=== PATIENT | female | born 1975 | race Caucasian/White ===

== ENCOUNTER 2025-02-18 05:35 | Emergency (ER) | payer OTHER, SELFPAY ==
[2025-02-18 05:35] VITALS: BP 147/85; PULSE 100; RESP 18; TEMP 36.4; O2SAT 99; BMI 28.9
--- NOTE | 2025-02-18 06:30 | EX.ED.DYSGE1 ---
HPI History of Present Illness Chief Complaint: Other, Pain/Inj Informant: patient and spouse/S.O. Narrative Narrative: Patient is a 49-year-old female with history of hypothyroidism. She states that yesterday evening she went to take off her rings before bath and noticed she could not get her wedding ring off her ring finger. She states that she tried soaking the hand in ice to shrink the tissue but could not get the ring off and her even tried the home trick of using dental floss to compress the tissue inside the ring off but was unsuccessful. She states that she tried to sleep with her hand elevated above her head but awoke with throbbing and pain. As she cannot get the ring off and she is concerned this will lead to constriction and lack of blood flow to the finger she presents for evaluation [facility] Medical History (Updated 02/18/25 @ 08:[address] Sim Mendez, ) History of deviated nasal septum Hypothyroidism Pulmonic stenosis Home Medications ?Medication ?Instructions ?Recorded ?Last Taken ?Type fluticasone propionate 50 2 spray PRN PRN Allergies 11/25/14 Unknown History mcg/actuation nasal spray,suspension levothyroxine 125 mcg tablet 125 mcg PO DAILY 11/25/14 Unknown History loratadine 10 mg tablet (Allergy 10 mg PO DAILY PRN Allergies 11/25/14 Unknown History Relief (loratadine)) nitrofurantoin macrocrystal 100 mg 100 mg PO BID UTI ##14 09/12/16 Unknown Rx capsule (Macrodantin) Allergy/AdvReac Type Severity Reaction Status Date / Time Quinolones AdvReac NEEDS Verified 02/18/25 05:35 FOLLOW-UP Family History no significant family his Surgical History (Updated 02/18/25 @ 05:37 by Lakhwinder Rodriguez) Hx of section History of open heart surgery Social History Smoking Status: Never smoker ROS ROS ED Constitutional Constitutional ED: Denies chills or fever(s) Cardiovascular Cardiovascular: Denies chest pain Respiratory/Chest Respiratory/Chest: Denies cough or dyspnea Gastrointestinal Gastrointestinal: Denies abdominal pain, diarrhea, nausea or vomiting Musculoskeletal Musculoskeletal: Reports other Details: Positive left ring finger pain and swelling Integumentary Denies Abrasions or rash Neurologic Neurologic: Denies headache(s) or paresthesias Hematologic/Lymphatic Hematologic/Lymphatic: Denies easy bleeding or easy bruising EXAM Physical Exam Const Vital Signs: 02/18/25 05:35 02/18/25 05:35 02/18/25 06:32 Temperature 97.6 F L 97.6 F L Temperature Source Oral Pulse Rate 100 72 Respiratory Rate 18 18 Respiratory Effort Normal Respiratory Pattern Normal Blood Pressure 147/85 H 137/87 H Blood Pressure Mean 105 103 Pulse Ox 99 97 Oxygen Delivery Method Room Air Positive well nourished and well developed General Appearance ED: well developed HEENT HEENT Narrative: Normocephalic atraumatic Eyes PERRL and EOMs intact bilaterally General Eye ED: Negative for scleral icterus Neck supple Resp normal respiratory effort and clear to auscultation bilaterally Cardio regular rate and regular rhythm Extremity Extremity Narrative: Left upper extremity is neurovascularly intact; AIN/PIN are intact and normal. There is soft tissue swelling to the proximal phalanx of the left ring finger consistent with the impacted jewelry. However the capillary refill to the hand and all digits is less than 3 seconds. The tissue is still warm. There is no ecchymosis. No signs of vascular compromise. Remainder of the exam is normal Neuro oriented x3, CN's II-XII intact bilaterally and no sensory deficits noted Sensorium / Orientation: alert Motor Exam: strength 5/5 throughout Psych mental status grossly normal Skin Skin Narrative: Soft tissue swelling and erythema of the proximal phalanx of the left ring finger consistent with impacted ring. No secondary findings of infection or hypoxia/necrosis. MDM MDM MDM Narrative Medical decision making narrative: Patient arrived to the ER mildly hypertensive otherwise with stable vitals. She has had an impacted ring on her left fourth finger for multiple hours. Despite this there are no signs of neurovascular compromise or ischemia. There is no report or signs of trauma either so have low concern that the soft tissue swelling is from a fracture or contusion. There are no findings to suggest cellulitis or abscess as a cause of the symptoms either. Therefore there is no need for laboratory studies or imaging. The patient had the ring removed with a ring cutter. After the rings were removed there was improvement in the swelling. She continued to have full active range of motion of the digit and capillary refill remained less than 3 seconds. Now that the constrictive device has been removed there is no need for further intervention and she is otherwise safe for discharge History & Record Review Discussion w/independent historian: Patient and Significant other Discharge Plan Triage Chief Complaint: Other, Pain/Inj ED Provider: Sim Mendez Dx/Rx/DC Orders Clinical Impression: Ring or other jewelry causing external constriction, initial encounter, Hypothyroidism Instructions: ED Ring Removal (Adult) Prescriptions: No Action levothyroxine 125 MCG tablet 125 mcg PO DAILY fluticasone propionate 1 SPRAY spray,suspension 2 spray NASAL PRN PRN (Reason: Allergies) loratadine [Allergy Relief (loratadine)] 10 MG tablet 10 mg PO DAILY PRN (Reason: Allergies) nitrofurantoin macrocrystal [Macrodantin] 100 MG capsule 100 mg PO BID Qty: 14 0RF Primary Care Provider: David Deras Referrals: David Deras MD [Primary Care Provider, Family Practice] Print Language: Latvian Disposition Disposition: Home, Self Care Discharge Date/Time: 02/18/25 06:43
[2025-02-18 06:32] VITALS: BP 137/87; PULSE 72; RESP 18; TEMP 36.4; O2SAT 97
== END 2025-02-18 06:43 | disposition home or self-care (01) ==
PROVIDERS: Emergency Provider Emergency Medicine; PCP Family Medicine; Visit Provider Emergency Medicine
DX: S60.445A External constriction of left ring finger, initial encounter (principal); E03.9 Hypothyroidism, unspecified; W49.04XA Ring or other jewelry causing external constriction, initial encounter
CPT/HCPCS: 99282